=== PATIENT | male | born 1970 | race Hispanic/Latino ===

== ENCOUNTER → 2021-10-19 | Outpatient (CLI) | payer OTHER ==
[~2021-10-19] MED LIST: LIDOCAINE HCL 4% LTA SOL 4 ML VIAL ONE
== END | disposition home or self-care (01) ==
LOC: WHH 09:28
PROVIDERS: ATTEND Family Medicine
DX: L89.314 Pressure ulcer of right buttock, stage 4 (principal); E11.9 Type 2 diabetes mellitus without complications; I10 Essential (primary) hypertension; G40.909 Epilepsy, unspecified, not intractable, without status epilepticus; E66.9 Obesity, unspecified; Z68.28 Body mass index [BMI] 28.0-28.9, adult; Z93.0 Tracheostomy status; Z86.73 Personal history of transient ischemic attack (TIA), and cerebral infarction without residual deficits; Z79.899 Other long term (current) drug therapy
CPT/HCPCS: 11042; 87070; 87077 ×2; 87186 ×2; G0463

== ENCOUNTER → 2021-10-26 | Outpatient (CLI) | payer OTHER | END | disposition home or self-care (01) | LOC: WHH 09:04 | PROVIDERS: ATTEND Family Medicine | DX: L89.314 Pressure ulcer of right buttock, stage 4 (principal); E11.9 Type 2 diabetes mellitus without complications; I10 Essential (primary) hypertension; G40.909 Epilepsy, unspecified, not intractable, without status epilepticus; E66.9 Obesity, unspecified; Z68.28 Body mass index [BMI] 28.0-28.9, adult; Z93.0 Tracheostomy status; Z86.73 Personal history of transient ischemic attack (TIA), and cerebral infarction without residual deficits; Z79.899 Other long term (current) drug therapy | CPT/HCPCS: 11042 ==

== ENCOUNTER → 2021-11-09 | Outpatient (CLI) | payer OTHER | END | disposition home or self-care (01) | LOC: WHH 08:59 | PROVIDERS: ATTEND Family Medicine | DX: L89.314 Pressure ulcer of right buttock, stage 4 (principal); E11.9 Type 2 diabetes mellitus without complications; I10 Essential (primary) hypertension; G40.909 Epilepsy, unspecified, not intractable, without status epilepticus; E66.9 Obesity, unspecified; Z68.28 Body mass index [BMI] 28.0-28.9, adult; Z93.0 Tracheostomy status; Z86.73 Personal history of transient ischemic attack (TIA), and cerebral infarction without residual deficits; Z79.899 Other long term (current) drug therapy | CPT/HCPCS: G0463 ==

== ENCOUNTER 2021-11-30 10:11 | Emergency (ER) | payer OTHER ==
[~2021-11-30] VITALS: Ht 154.9 cm; Wt 71.7 kg
[2021-11-30 10:45] LABS: BASOPHILS % (AUTO) 0.4 % (0.0-5.0); EOSINOPHILS % (AUTO) 1.5 % (0.0-8.0); HEMATOCRIT 33.8 % (42-54); MEAN CORPUSCULAR HEMOGLOBIN 27.6 pg (27.0-33.0); MEAN CORPUSCULAR VOLUME 86.2 fL (79-99); MONOCYTES % (AUTO) 6.5 % (3.0-13.0); PLATELET COUNT (AUTO) 249 K/uL (130-400); RED BLOOD CELL COUNT(AUTO) 3.92 MIL/uL (4.50-6.20); WHITE BLOOD COUNT (AUTO) 10.6 K/uL (4.8-10.8)
[2021-11-30 11:02] LABS: CREATININE 0.9 mg/dL (0.5-1.5); POTASSIUM 3.3 mmol/L (3.5-5.1)
[2021-11-30 11:07] LABS: ALBUMIN 2.5 g/dL (3.5-5.0); BILIRUBIN,TOTAL 0.2 mg/dL (0.2-1.0); TOTAL PROTEIN, SERUM 8.3 g/dL (6.0-8.3)
[2021-11-30 11:29] LABS: PROTHROMBIN TIME 10.9 SEC (9.6-11.6)
[2021-11-30 11:30] LABS: PARTIAL THROMBOPLASTIN TIME 30.6 SEC (26.3-35.5)
[2021-11-30] MEDS ORDERED: DOXYCYCLINE HYCLATE 100 MG TABLET PO SCH (13:30)
[2021-11-30] MEDS ORDERED: DOXY-336 PO (13:31)
[2021-11-30 13:53] VITALS: BP 125/56
== END 2021-11-30 14:14 | disposition home or self-care (01) ==
LOC: EDH 10:11 → EDSEX 10:11 → EDH 14:14
DX: S30.810A Abrasion of lower back and pelvis, initial encounter (principal); L08.9 Local infection of the skin and subcutaneous tissue, unspecified; I10 Essential (primary) hypertension; Z86.73 Personal history of transient ischemic attack (TIA), and cerebral infarction without residual deficits; X58.XXXA Exposure to other specified factors, initial encounter; Y93.89 Activity, other specified; Y92.89 Other specified places as the place of occurrence of the external cause; Y99.8 Other external cause status
CPT/HCPCS: 36415; 72192; 80053; 82550; 83605; 84484; 85025; 85610; 85730; 87040 ×2; 99284; A4450; G0463

== ENCOUNTER → 2021-11-30 | Outpatient (CLI) | payer OTHER ==
[~2021-11-30] MED LIST changes: +DOXY-336 PO; -LIDOCAINE HCL 4% LTA SOL 4 ML VIAL ONE; +LIDOCAINE HCL 4% LTA SOL 4 ML VIAL TP ONE
== END | disposition home or self-care (01) ==
LOC: EDSEX → WHH 09:16
PROVIDERS: ATTEND Family Medicine
DX: L89.314 Pressure ulcer of right buttock, stage 4 (principal); E11.9 Type 2 diabetes mellitus without complications; L02.31 Cutaneous abscess of buttock; I10 Essential (primary) hypertension; G40.909 Epilepsy, unspecified, not intractable, without status epilepticus; E66.9 Obesity, unspecified; Z68.28 Body mass index [BMI] 28.0-28.9, adult; Z93.0 Tracheostomy status; Z86.73 Personal history of transient ischemic attack (TIA), and cerebral infarction without residual deficits; Z79.899 Other long term (current) drug therapy
CPT/HCPCS: A4450; G0463

== ENCOUNTER → 2021-12-14 | Outpatient (CLI) | payer OTHER | END | disposition home or self-care (01) | LOC: WHH 10:59 | PROVIDERS: ATTEND Family Medicine | DX: L89.314 Pressure ulcer of right buttock, stage 4 (principal); L02.31 Cutaneous abscess of buttock; E11.9 Type 2 diabetes mellitus without complications; G40.909 Epilepsy, unspecified, not intractable, without status epilepticus; E66.9 Obesity, unspecified; Z68.28 Body mass index [BMI] 28.0-28.9, adult; Z93.0 Tracheostomy status; Z86.73 Personal history of transient ischemic attack (TIA), and cerebral infarction without residual deficits; Z79.899 Other long term (current) drug therapy | CPT/HCPCS: 87070 ×2; 87077 ×5; 87186 ×5; A6248; A6260; G0463 ==

== ENCOUNTER → 2021-12-28 | Outpatient (CLI) | payer OTHER | END | disposition home or self-care (01) | LOC: WHH 11:04 | PROVIDERS: ATTEND Family Medicine | DX: L89.314 Pressure ulcer of right buttock, stage 4 (principal); L02.31 Cutaneous abscess of buttock; E11.9 Type 2 diabetes mellitus without complications; G40.909 Epilepsy, unspecified, not intractable, without status epilepticus; E66.9 Obesity, unspecified; Z68.28 Body mass index [BMI] 28.0-28.9, adult; Z93.0 Tracheostomy status; Z86.73 Personal history of transient ischemic attack (TIA), and cerebral infarction without residual deficits; Z79.899 Other long term (current) drug therapy | CPT/HCPCS: 11042; A4450; A6248 ==